=== PATIENT | female | born 1975 | race Caucasian/White ===

== ENCOUNTER → 2019-05-01 07:11 | Outpatient (CLI) | payer BC, SELFPAY ==
--- NOTE | 2019-05-01 07:45 | MRI_ITS ---
HISTORY: Right foot pain. Especially laterally. Concern for cuboid fracture. Swelling. Injury. EXAMINATION: MR Foot W/O Contrast TECHNIQUE: Multiplanar and multisequence MR images of the right foot. Only one fat saturated series, the sagittal series, which has a very limited field of view through the tarsal bones IV Contrast dosage and agent: None. COMPARISON: None. 186 images FINDINGS: BONE: The cuboid has normal signal. There is a small amount of abnormal increased T2 weighted signal within the distal lateral aspect of the calcaneus. A small tubercle is present on the lateral aspect of the calcaneus as the peroneus longus tendon courses over the calcaneus. There is some tendinosis and edema within the peroneus longus tendon. A sesamoid bone is present within the peroneus longus tendon as it courses under the Cuboid. Bony alignment is normal. Degenerative edema is minimal within the talus and the navicular. Some edema is also present within the calcaneus as it abuts the talonavicular joint. JOINTS: Small ankle effusion is present. MUSCLES: Normal bulk and signal. LIGAMENTS: The Lisfranc ligament is intact. TENDONS: The peroneus longus and brevis tendons demonstrate tendinosis as they course by the lateral aspect of the calcaneus and the tubercle extending off of the calcaneus MISCELLANEOUS: Incompletely imaged but intact plantar fascia OTHER SOFT TISSUES: Soft tissue edema and thickening within the dorsum of the foot MRI/Lower Ext/No Jt/w/o IMPRESSION: Limited views of the foot. The imaging is focal over the tarsal bones. No fracture to the cuboid. Edema within the distal lateral calcaneus with a tubercle extending laterally off of the calcaneus as it abuts the peroneus brevis and longus tendons. The peroneal tendons both have some tendinosis and thickening and edema. 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 Cellulitis within the dorsum of the foot at 0602 Reported and signed by: Chema Johnson MD Electronically Signed: Chema Johnson MD at 6:01 EST Tel , Service support ,
== END ==
PROVIDERS: PCP Family Medicine
DX: S92.211A Displaced fracture of cuboid bone of right foot, initial encounter for closed fracture (principal); M79.671 Pain in right foot; M79.89 Other specified soft tissue disorders
CPT/HCPCS: 73718